=== PATIENT | female | born 1970 | race Caucasian/White ===

== ENCOUNTER 2019-04-10 17:33 | Observation (INO) | payer BC ==
--- NOTE | 2019-04-10 18:15 | ER Document Report ---
HPI - HPI Pain Level: 4 Notes: Patient is a 49-year-old female with a history of GERD who presents complaining of right upper quadrant abdominal pain and right lateral mid rib pain over the past week. No injury. Patient states that she can reproduce the pain by pushing on it as well as taking a deep breath or coughing. She is still able to eat and drink without difficulty. She is urinating normally. Patient states that she is able to ambulate without any shortness of breath or dyspnea on exertion. No history of DVT/PE. Denies any headache, fever, neck pain, URI, sore throat, chest pain, palpitations, syncope, cough, shortness of breath, wheeze, dyspnea, nausea/vomiting/diarrhea, urinary retention, dysuria, hematuria, loss of control of bowel or bladder, numbness/tingling, muscle paralysis/weakness, rash. History of total hysterectomy. - ROS Systems Reviewed and Negative: Yes All other systems reviewed and negative - REPRODUCTIVE Reproductive: DENIES: : Past Medical History - Social History Smoking Status: Never Smoker Family History: Reviewed & Not Pertinent GI Medical History: Reports: Hx Gastroesophageal Reflux Disease Past Surgical History: Reports: Hx Genitourinary Surgery - bladder sling, vaginal mesh, Hx Gynecologic Surgery, Hx Hysterectomy, Hx Orthopedic Surgery - Left foot, Hx Tonsillectomy Vertical Provider Document - CONSTITUTIONAL Agree With Documented VS: Yes Notes: PHYSICAL EXAMINATION: GENERAL: Well-appearing, well-nourished and in no acute distress. HEAD: Atraumatic, normocephalic. EYES: Pupils equal round and reactive to light, extraocular movements intact, sclera anicteric, conjunctiva are normal. ENT: Nares patent and without discharge. oropharynx clear without exudates. No tonsilar hypertrophy or erythema. Moist mucous membranes. NECK: Normal range of motion, supple without lymphadenopathy Chest: + reproducible tenderness to palpation of the rt lateral mid rib area and reproducible with arm extension/abduction/trunk lateral flexion LUNGS: Breath sounds clear to auscultation bilaterally and equal. No wheezes rales or rhonchi. HEART: Regular rate and rhythm without murmurs, rubs, gallops. ABDOMEN: Soft, nondistended abdomen. No guarding, no rebound. No masses appreciated. Normal bowel sounds present. No CVA tenderness bilaterally. + tenderness RUQ. Musculoskeletal: FROM to passive/active. Strength 5+/5. Ken neg. No asymmetry to LE's. Extremities: No cyanosis, clubbing, or edema b/l. Peripheral pulses 2+. Capillary refill less than 3 seconds. NEUROLOGICAL: Normal speech, normal gait. PSYCH: Normal mood, normal affect. SKIN: Warm, Dry, normal turgor, no rashes or lesions noted. - INFECTION CONTROL TRAVEL OUTSIDE OF THE [place] IN LAST 30 DAYS: No Course - Re-evaluation Re-evalutation: 04/10/19 18:[address] Colon. We will perform basic work up at this time. Pt Wells' negative with reproducible tenderness on palpation and ROM. 04/10/19 20:20 Patient is an afebrile, well-hydrated, 49-year-old female who presents with acute cholecystitis. Vitals are acceptable without significant tachycardia, tachypnea, or hypoxia. PE is otherwise unremarkable aside from positive Cardenas. Patient does have leukocytosis at 17,000. CMP and urinalysis unremarkable. I did speak with our general surgeon, Dr. Mortensen, who has accepted patient for admission. Patient is in agreement with this plan. - Vital Signs Vital signs: Temp Pulse Resp BP Pulse Ox 97.8 F 84 16 131/72 H 97 04/10/19 17:41 04/10/19 17:41 04/10/19 17:41 04/10/19 17:41 04/10/19 17:41 - Laboratory Result Diagrams: 04/10/19 18:35 04/10/19 18:35 Discharge - Discharge Clinical Impression: Acute cholecystitis Condition: Stable Disposition: ADMITTED INPATIENT Admitting Provider: Surgicalist - Dr. Mortensen Unit Admitted: Surgical Floor Referrals: LOCALMD,NO [NO LOCAL MD] - Follow up as needed
--- NOTE | 2019-04-10 18:48 | RADIOLOGY REPORT (SQ) ---
EXAM DESCRIPTION: RIBS RIGHT W/PA CHEST COMPLETED DATE/TIME: 04/10/2019 6:27 pm REASON FOR STUDY: pain right lateral mid rib area COMPARISON: None. TECHNIQUE: Frontal view of the chest and additional views of the right ribs acquired. NUMBER OF VIEWS: Three view. LIMITATIONS: None. FINDINGS: FRONTAL CXR: No pneumothorax. No pleural effusion. No atelectasis or infiltrates. RIBS: No displaced rib fractures. No lytic or blastic bony lesions. OTHER: No other significant finding. IMPRESSION: NO PNEUMOTHORAX. NO DISPLACED RIB FRACTURES. COMMENT: SITE OF TRAUMA/COMPLAINT MARKED/STAMP COMPLETED: NO. TECHNICAL DOCUMENTATION: JOB ID: [id number] [employer]- All Rights Reserved Reading location - IP/workstation name: [email or web address]
[2019-04-10 18:50] LABS: ABSOLUTE EOSINOPHILS # (AUTO) 0.2 10^3/uL (0.0-0.6); ABSOLUTE LYMPHOCYTES (AUTO) 6.7 10^3/uL (0.5-4.7); ABSOLUTE MONOCYTES (AUTO) 0.9 10^3/uL (0.1-1.4); ABSOLUTE NEUT (AUTO) 9.6 10^3/uL (1.7-8.2); BASOPHILS % (AUTO) 0.1 % (0-2); HEMATOCRIT 42.1 % (36.0-47.0); HEMOGLOBIN 13.8 g/dL (12.0-15.5); LYMPHOCYTES % (AUTO) 38.6 % (13-45); MEAN CORPUSCULAR HEMOGLOBIN 28.4 pg (27.0-33.4); MEAN CORPUSCULAR HGB CONC 32.8 g/dL (32.0-36.0); MEAN CORPUSCULAR VOLUME 87 fl (80-97); MONOCYTES % (AUTO) 4.9 % (3-13); PLATELET COUNT 359 10^3/uL (150-450); RED BLOOD COUNT 4.86 10^6/uL (3.72-5.28); RED CELL DISTRIBUTION WIDTH 13.8 % (11.5-14.0); SEGMENTED NEUTROPHILS % (AUTO) 55.4 % (42-78); TOTAL CELLS COUNTED % (AUTO) 100 %; WHITE BLOOD COUNT 17.3 10^3/uL (4.0-10.5)
[2019-04-10 19:09] LABS: ALANINE AMINOTRANSFERASE 45 U/L (9-52); ALBUMIN 4.1 g/dL (3.5-5.0); ALKALINE PHOSPHATASE 72 U/L (38-126); ANION GAP 12 (5-19); ASPARTATE AMINO TRANSFERASE 30 U/L (14-36); BILIRUBIN,DIRECT 0.1 mg/dL (0.0-0.4); BILIRUBIN,TOTAL 0.2 mg/dL (0.2-1.3); BLOOD UREA NITROGEN 13 mg/dL (7-20); CALCIUM 9.8 mg/dL (8.4-10.2); CARBON DIOXIDE 23 mmol/L (22-30); CHLORIDE 105 mmol/L (98-107); GLUCOSE 120 mg/dL (75-110); LIPASE 170.8 U/L (23-300); POTASSIUM 3.8 mmol/L (3.6-5.0); SODIUM 140.3 mmol/L (137-145)
[2019-04-10 19:35] LABS: APPEARANCE,URINE SLIGHTLY-CLOUDY; BILIRUBIN,URINE NEGATIVE (NEGATIVE); COLOR,URINE YELLOW; GLUCOSE, URINE NEGATIVE (NEGATIVE); KETONES,URINE NEGATIVE (NEGATIVE); LEUKOCYTE ESTERASE,URINE NEGATIVE (NEGATIVE); NITRITE,URINE NEGATIVE (NEGATIVE); PROTEIN,URINE NEGATIVE (NEGATIVE); URINE SPECIFIC GRAVITY 1.021; UROBILINOGEN,URINE NEGATIVE mg/dL (<2.0)
--- NOTE | 2019-04-10 19:50 | RADIOLOGY REPORT (SQ) ---
EXAM DESCRIPTION: U/S ABDOMEN LIMITED W/O DOP COMPLETED DATE/TIME: 04/10/2019 7:25 pm REASON FOR STUDY: RUQ pain COMPARISON: None. TECHNIQUE: Dynamic and static grayscale images acquired of the abdomen and recorded on PACS. Albertoo lisa selected color Doppler and spectral images recorded. LIMITATIONS: Very limited study. FINDINGS: PANCREAS: Not seen. LIVER: Increased echogenicity. Not well seen. No obvious masses. LIVER VASCULATURE: Not seen. GALLBLADDER: No stones. The gallbladder wall is thickened at 3.8 mm. ULTRASOUND-DETECTED CARDENAS'S SIGN: Positive. INTRAHEPATIC DUCTS AND COMMON DUCT: Ducts not seen. INFERIOR VENA CAVA: Not imaged. AORTA: No aneurysm. The distal aorta was not well seen. RIGHT KIDNEY: Normal size, 10.3 cm. Normal echogenicity. No solid or suspicious masses. No hydroneph rosis. No calcifications. PERITONEAL AND RIGHT PLEURAL SPACE: No ascites or effusions. OTHER: No other significant findings. IMPRESSION: Hepatic steatosis. Thickening of the gallbladder wall and positive sonographic Cardenas s ign. Cannot exclude acalculous cholecystitis. TECHNICAL DOCUMENTATION: JOB ID: [id number]- All Rights Reserved Reading location - IP/workstation name: [email or web address]
[2019-04-10] MEDS ORDERED: NORMAL SALINE 1000 ML 1,000 ML IV ONE (20:20)
[2019-04-10] MEDS: ONDANSETRON HCL INJ/PF 4 MG/2 ML SDV IV PRN (21:00)
[2019-04-10] MEDS: MORPHINE SULFATE 10 MG/ML INJ IV PRN (21:00)
[2019-04-10] MEDS: PIPERACILLIN SODIUM/TAZOBACTAM 3.375 GM in NORMAL SALINE 100 ML IV SCH (21:02)
[2019-04-10] MEDS: DEXTROSE 5%-LACTATED RINGERS 1,000 ML IV PRN (22:32)
[2019-04-11] MEDS: MORPHINE SULFATE 10 MG/ML INJ IV PRN ×3 (02:25→13:38)
[2019-04-11] MEDS: PIPERACILLIN SODIUM/TAZOBACTAM 3.375 GM in NORMAL SALINE 100 ML IV SCH ×4 (02:25→21:29)
[2019-04-11] MEDS: ONDANSETRON HCL INJ/PF 4 MG/2 ML SDV IV PRN ×2 (02:26→06:28)
[2019-04-11 05:53] LABS: ABSOLUTE BASOPHILS # (AUTO) 0.1 10^3/uL (0.0-0.2); ABSOLUTE EOSINOPHILS # (AUTO) 0.3 10^3/uL (0.0-0.6); ABSOLUTE LYMPHOCYTES (AUTO) 5.5 10^3/uL (0.5-4.7); ABSOLUTE MONOCYTES (AUTO) 0.9 10^3/uL (0.1-1.4); ABSOLUTE NEUT (AUTO) 7.4 10^3/uL (1.7-8.2); BASOPHILS % (AUTO) 0.5 % (0-2); EOSINOPHILS % (AUTO) 1.9 % (0-6); HEMATOCRIT 39.4 % (36.0-47.0); HEMOGLOBIN 12.9 g/dL (12.0-15.5); LYMPHOCYTES % (AUTO) 39.1 % (13-45); MEAN CORPUSCULAR HEMOGLOBIN 28.5 pg (27.0-33.4); MEAN CORPUSCULAR HGB CONC 32.8 g/dL (32.0-36.0); MEAN CORPUSCULAR VOLUME 87 fl (80-97); MONOCYTES % (AUTO) 6.1 % (3-13); PLATELET COUNT 325 10^3/uL (150-450); RED BLOOD COUNT 4.53 10^6/uL (3.72-5.28); RED CELL DISTRIBUTION WIDTH 13.5 % (11.5-14.0); SEGMENTED NEUTROPHILS % (AUTO) 52.4 % (42-78); TOTAL CELLS COUNTED % (AUTO) 100 %
--- NOTE | 2019-04-11 06:02 | PDOC H&P ---
History of Present Illness Admission Date/PCP: 04/10/19 20:29 Patient complains of: right upper quadrant and flank pain History of Present Illness: MOISÉS SLADE is a 49 year old female with a long history of "gallbladder problems". The patient began having right upper quadrant pain yesterday afternoon that radiated around into her right flank. The pain became severe. It is unrelenting. The pain is sharp and stabbing. She rates it 8 out of 10. At this time she presented to the emergency department where evaluation was was undertaken. Patient reports nausea without vomiting. Nothing makes her pain better. Palpation and movement make her pain worse. She denies headache, chest pain, fevers, chills, shortness of breath, melena, hematochezia, hematemesis, orthostasis, blurry vision. Past Medical History GI Medical History: Reports: Gastroesophageal Reflux Disease Past Surgical History Past Surgical History: Reports: Hysterectomy, Orthopedic Surgery - Left foot, Tonsillectomy, Other - "Bladder mesh" Social History Information Source: Patient Smoking Status: Never Smoker Hx Recreational Drug Use: No Drugs: None Hx Prescription Drug Abuse: No Family History Family History: Reviewed & Not Pertinent Parental Family History Reviewed: Yes Children Family History Reviewed: Yes Sibling(s) Family History Reviewed.: Yes Medication/Allergy Home Medications: Esomeprazole Magnesium [Nexium 24Hr] 40 mg PO DAILY 04/10/19 Estradiol [Estrace] 0.5 mg PO DAILY 04/10/19 L.acidoph,Paracasei, B.lactis [Probiotic] 1 each PO DAILY 04/10/19 Allergies/Adverse Reactions: aspirin [Aspirin] Adverse Reaction (Verified 04/10/19 17:37) Review of Systems Constitutional: ABSENT: anorexia, chills, fatigue, fever(s), headache(s), night sweats, weakness Eyes: ABSENT: visual disturbances Ears: ABSENT: hearing changes Nose, Mouth, and Throat: ABSENT: sore throat Cardiovascular: ABSENT: chest pain Respiratory: ABSENT: cough, dyspnea Gastrointestinal: PRESENT: abdominal pain, heartburn, nausea. ABSENT: bloating, hematemesis, hematochezia, melena, vomiting Genitourinary: ABSENT: difficulty urinating Musculoskeletal: PRESENT: back pain - Right\\flank Integumentary: ABSENT: pruritus, rash Neurological: ABSENT: abnormal speech, confusion, convulsions, dizziness Psychiatric: ABSENT: anxiety, depression Endocrine: ABSENT: cold intolerance, heat intolerance Hematologic/Lymphatic: ABSENT: easy bleeding, easy bruising Physical Exam Vital Signs: Temp Pulse Resp BP Pulse Ox 98.2 F 67 17 126/59 H 96 04/11/19 02:41 04/11/19 02:41 04/11/19 02:41 04/11/19 02:41 04/11/19 02:41 Intake & Output 04/09/19 04/10/19 04/11/19 06:59 06:59 06:59 Intake Total 1200 Balance 1200 Weight 89.9 kg General appearance: PRESENT: obese Head exam: PRESENT: atraumatic, normocephalic Eye exam: PRESENT: EOMI, PERRLA. ABSENT: scleral icterus Mouth exam: PRESENT: moist, neck supple Teeth exam: ABSENT: poor dentation Neck exam: ABSENT: meningismus, tenderness, thyromegaly, tracheal deviation Respiratory exam: PRESENT: clear to auscultation [place], unlabored. ABSENT: chest wall tenderness, tachypnea, wheezes Cardiovascular exam: PRESENT: RRR Pulses: PRESENT: normal radial pulses Vascular exam: PRESENT: normal capillary refill. ABSENT: pallor GI/Abdominal exam: PRESENT: guarding - Right upper quadrant, Cardenas's sign, soft, tenderness - Right upper quadrant/flank. ABSENT: rigid Rectal exam: PRESENT: deferred Extremities exam: ABSENT: clubbing Musculoskeletal exam: ABSENT: deformity Neurological exam: PRESENT: alert, awake, oriented to person, oriented to place, oriented to time, oriented to situation Psychiatric exam: ABSENT: agitated, anxious, depressed Focused psych exam: ABSENT: delusional Skin exam: ABSENT: cyanosis, erythema, jaundice Results Laboratory Results: 04/10/19 04/10/19 04/10/19 18:35 18:35 19:20 WBC 17.3 H RBC 4.86 Hgb 13.8 Hct 42.1 MCV 87 MCH 28.4 MCHC 32.8 RDW 13.8 Plt Count 359 Seg Neutrophils % 55.4 Lymphocytes % 38.6 Monocytes % 4.9 Eosinophils % 1.0 Basophils % 0.1 Absolute Neutrophils 9.6 H Absolute Lymphocytes 6.7 H Absolute Monocytes 0.9 Absolute Eosinophils 0.2 Absolute Basophils 0.0 Sodium 140.3 Potassium 3.8 Chloride 105 Carbon Dioxide 23 Anion Gap 12 BUN 13 Creatinine 0.66 Est GFR ( Amer) > 60 Est GFR (Non-Af Amer) > 60 Glucose 120 H Calcium 9.8 Total Bilirubin 0.2 AST 30 ALT 45 Alkaline Phosphatase 72 Total Protein 7.0 Albumin 4.1 Lipase 170.8 Urine Color YELLOW Urine Appearance SLIGHTLY-CLOUDY Urine pH 5.0 Ur Specific [place] 1.021 Urine Protein NEGATIVE Urine Glucose (UA) NEGATIVE Urine Ketones NEGATIVE Urine Blood NEGATIVE Urine Nitrite NEGATIVE Ur Leukocyte Esterase NEGATIVE Urine WBC (Auto) 2 Urine RBC (Auto) 0 Impressions: Abdomen Ultrasound 04/10/19 18:09 IMPRESSION: Hepatic steatosis. Thickening of the gallbladder wall and positive sonographic Cardenas sign. Cannot exclude acalculous cholecystitis. Ribs w/Chest X-Ray 04/10/19 18:09 IMPRESSION: NO PNEUMOTHORAX. NO DISPLACED RIB FRACTURES. Assessment & Plan - Diagnosis (1) Acute cholecystitis Is this a current diagnosis for this admission?: Yes - Plan Summary Plan Summary: This is a 49-year-old female with acute cholecystitis. She has an elevated white blood cell count as well as thickening of her gallbladder wall on ultrasound. I have admitted the patient and started her on Zosyn. I have recommended cholecystectomy today. The patient has agreed to this. Risks/benefits discussed, informed consent obtained, and all questions answered.
[2019-04-11 06:20] LABS: ALANINE AMINOTRANSFERASE 37 U/L (9-52); ALBUMIN 3.4 g/dL (3.5-5.0); ALKALINE PHOSPHATASE 58 U/L (38-126); ANION GAP 9 (5-19); ASPARTATE AMINO TRANSFERASE 28 U/L (14-36); BILIRUBIN,DIRECT 0.2 mg/dL (0.0-0.4); BILIRUBIN,TOTAL 0.2 mg/dL (0.2-1.3); BLOOD UREA NITROGEN 14 mg/dL (7-20); CARBON DIOXIDE 23 mmol/L (22-30); CHLORIDE 109 mmol/L (98-107); GLUCOSE 94 mg/dL (75-110); POTASSIUM 4.4 mmol/L (3.6-5.0); SODIUM 141.4 mmol/L (137-145); TOTAL PROTEIN 5.9 g/dL (6.3-8.2)
[2019-04-11] MEDS: DEXTROSE 5%-LACTATED RINGERS 1,000 ML IV PRN (06:29)
--- NOTE | 2019-04-11 07:29 | PDOC PROGRESS REPORT ---
Subjective Progress Note for:: 04/11/19 Subjective:: RUQ pain Reason For Visit: ACUTE CHOLECYSTITIS Physical Exam Vital Signs: Temp Pulse Resp BP Pulse Ox 98.2 F 67 17 126/59 H 96 04/11/19 02:41 04/11/19 02:41 04/11/19 02:41 04/11/19 02:41 04/11/19 02:41 Intake & Output 04/10/19 04/11/19 04/12/19 06:59 06:59 06:59 Intake Total 1200 Balance 1200 Weight 89.9 kg General appearance: PRESENT: mild distress, obese Respiratory exam: PRESENT: clear to auscultation [place] Cardiovascular exam: PRESENT: RRR GI/Abdominal exam: PRESENT: Cardenas's sign - positive, soft, tenderness - RUQ Results Laboratory Results: 04/11/19 05:15 04/11/19 05:15 04/10/19 04/10/19 04/10/19 18:35 18:35 19:20 WBC 17.3 H RBC 4.86 Hgb 13.8 Hct 42.1 MCV 87 MCH 28.4 MCHC 32.8 RDW 13.8 Plt Count 359 Seg Neutrophils % 55.4 Lymphocytes % 38.6 Monocytes % 4.9 Eosinophils % 1.0 Basophils % 0.1 Absolute Neutrophils 9.6 H Absolute Lymphocytes 6.7 H Absolute Monocytes 0.9 Absolute Eosinophils 0.2 Absolute Basophils 0.0 Sodium 140.3 Potassium 3.8 Chloride 105 Carbon Dioxide 23 Anion Gap 12 BUN 13 Creatinine 0.66 Est GFR ( Amer) > 60 Est GFR (Non-Af Amer) > 60 Glucose 120 H Calcium 9.8 Total Bilirubin 0.2 AST 30 ALT 45 Alkaline Phosphatase 72 Total Protein 7.0 Albumin 4.1 Lipase 170.8 Urine Color YELLOW Urine Appearance SLIGHTLY-CLOUDY Urine pH 5.0 Ur Specific [place] 1.021 Urine Protein NEGATIVE Urine Glucose (UA) NEGATIVE Urine Ketones NEGATIVE Urine Blood NEGATIVE Urine Nitrite NEGATIVE Ur Leukocyte Esterase NEGATIVE Urine WBC (Auto) 2 Urine RBC (Auto) 0 04/11/19 04/11/19 05:15 05:15 WBC 14.0 H RBC 4.53 Hgb 12.9 Hct 39.4 MCV 87 MCH 28.5 MCHC 32.8 RDW 13.5 Plt Count 325 Seg Neutrophils % 52.4 Lymphocytes % 39.1 Monocytes % 6.1 Eosinophils % 1.9 Basophils % 0.5 Absolute Neutrophils 7.4 Absolute Lymphocytes 5.5 H Absolute Monocytes 0.9 Absolute Eosinophils 0.3 Absolute Basophils 0.1 Sodium 141.4 Potassium 4.4 Chloride 109 H Carbon Dioxide 23 Anion Gap 9 BUN 14 Creatinine 0.70 Est GFR ( Amer) > 60 Est GFR (Non-Af Amer) > 60 Glucose 94 Calcium 9.0 Total Bilirubin 0.2 AST 28 ALT 37 Alkaline Phosphatase 58 Total Protein 5.9 L Albumin 3.4 L Lipase Urine Color Urine Appearance Urine pH Ur Specific [place] Urine Protein Urine Glucose (UA) Urine Ketones Urine Blood Urine Nitrite Ur Leukocyte Esterase Urine WBC (Auto) Urine RBC (Auto) Impressions: Abdomen Ultrasound 04/10/19 18:09 IMPRESSION: Hepatic steatosis. Thickening of the gallbladder wall and positive sonographic Cardenas sign. Cannot exclude acalculous cholecystitis. Ribs w/Chest X-Ray 04/10/19 18:09 IMPRESSION: NO PNEUMOTHORAX. NO DISPLACED RIB FRACTURES. Assessment & Plan - Diagnosis (1) Acute cholecystitis Is this a current diagnosis for this admission?: Yes - Plan Summary Plan Summary: A/ Acute, acalculus cholecystitis as per US RUQ pain Normal LFT's Leukocytosis (14K today) Patient on Zosyn P/ Laparoscopic cholecystectomy, possible open, possible cholangiogram today. Procedure, risks, benefits., complications including bleeding from the liver and or injury of the bile ducts which might require transfer to a tertiary medical center for open repair have been discussed with the patient, she understands all the above, her questions were answered, and she decides to proceed.
[2019-04-11] MEDS ORDERED: DEXAMETHASONE SOD PHOSPHATE INJ 4 MG/1 ML VIAL ONE (08:00)
[2019-04-11] MEDS ORDERED: MIDAZOLAM 2 MG/2 ML INJ ONE (08:00)
[2019-04-11] MEDS ORDERED: FENTANYL CITRATE INJ/PF 100 MCG/2 ML AMPUL ONE (08:00)
[2019-04-11] MEDS ORDERED: MORPHINE SULFATE 10 MG/ML INJ ONE (08:01)
[2019-04-11] MEDS ORDERED: ONDANSETRON HCL INJ/PF 4 MG/2 ML SDV ONE (08:01)
[2019-04-11] MEDS ORDERED: PROPOFOL INJ 200 MG/20 ML VIAL IV ONE (08:01)
[2019-04-11] MEDS ORDERED: BUPIVACAINE HCL 0.5%-EPI 1:200000 INJ/PF 30 ML VIAL ONE (08:08)
[2019-04-11] MEDS ORDERED: MEPERIDINE HCL/PF INJ 25 MG/1 ML DISP.SYRIN IV PRN (09:04)
[2019-04-11] MEDS ORDERED: MORPHINE SULFATE 10 MG/ML INJ IV PRN ×2 (09:04→10:27)
[2019-04-11] MEDS ORDERED: PROMETHAZINE HCL INJ 25 MG/1 ML VIAL IV PRN ×2 (09:04)
[2019-04-11] MEDS ORDERED: FENTANYL CITRATE INJ/PF 100 MCG/2 ML AMPUL IV PRN ×3 (09:04)
[2019-04-11] MEDS ORDERED: DIPHENHYDRAMINE HCL 50 MG/ML VIAL IV PRN (09:04)
--- NOTE | 2019-04-11 09:52 | Operative Report ---
Nonrecallable Operative Report DATE OF SURGERY: 04/11/19 PREOPERATIVE DIAGNOSIS: Acalculous acute cholecystitis POSTOPERATIVE DIAGNOSIS: same OPERATION: laparoscopic cholecystectomy SURGEON: ANDREINA KWAN ANESTHESIA: GA - plus 20 mL 0.5% Marcaine with epinephrine TISSUE REMOVED OR ALTERED: gallblader COMPLICATIONS: none ESTIMATED BLOOD LOSS: < 5 mL INTRAOPERATIVE FINDINGS: slighly inflamed gallbladder PROCEDURE: see dictation
[2019-04-11] MEDS: FENTANYL CITRATE INJ/PF 100 MCG/2 ML AMPUL ONE ×2 (10:19→10:24)
[2019-04-11] MEDS ORDERED: ONDANSETRON HCL INJ/PF 4 MG/2 ML SDV IV PRN (10:27)
[2019-04-11] MEDS: NORMAL SALINE 1000 ML 1,000 ML IV PRN (13:37)
[2019-04-11] MEDS: ACETAMINOPHEN 1,000 MG/100 ML RTUPB IV SCH ×2 (13:38→18:27)
[2019-04-11] MEDS ORDERED: ROCURONIUM BROMIDE INJ 50 MG/5 ML VIAL IV ONE (13:52)
[2019-04-11] MEDS ORDERED: SUCCINYLCHOLINE CHLORIDE INJ 200 MG/10 ML VIAL ONE (13:52)
[2019-04-11] MEDS ORDERED: NEOSTIGMINE METHYLSULFATE 10 MG/10 ML VIAL ONE (13:52)
[2019-04-11] MEDS ORDERED: GLYCOPYRROLATE 1 MG/5 ML SYRINGE ONE (13:52)
[2019-04-11] MEDS ORDERED: FAMOTIDINE INJ/PF 20 MG/2 ML SDV IV SCH (22:00)
[2019-04-12] MEDS: ACETAMINOPHEN 1,000 MG/100 ML RTUPB IV SCH ×2 (01:37→06:34)
[2019-04-12] MEDS: NORMAL SALINE 1000 ML 1,000 ML IV PRN (01:37)
[2019-04-12 06:28] LABS: HEMATOCRIT 36.7 % (36.0-47.0); HEMOGLOBIN 12.1 g/dL (12.0-15.5); MEAN CORPUSCULAR HEMOGLOBIN 28.3 pg (27.0-33.4); MEAN CORPUSCULAR HGB CONC 32.9 g/dL (32.0-36.0); MEAN CORPUSCULAR VOLUME 86 fl (80-97); PLATELET COUNT 304 10^3/uL (150-450); RED BLOOD COUNT 4.26 10^6/uL (3.72-5.28); RED CELL DISTRIBUTION WIDTH 13.4 % (11.5-14.0); WHITE BLOOD COUNT 16.1 10^3/uL (4.0-10.5)
[2019-04-12] MEDS: PIPERACILLIN SODIUM/TAZOBACTAM 3.375 GM in NORMAL SALINE 100 ML IV SCH ×3 (06:32→14:06)
[2019-04-12 06:40] LABS: ALANINE AMINOTRANSFERASE 69 U/L (9-52); ALBUMIN 3.5 g/dL (3.5-5.0); ALKALINE PHOSPHATASE 66 U/L (38-126); ANION GAP 10 (5-19); ASPARTATE AMINO TRANSFERASE 59 U/L (14-36); BILIRUBIN,DIRECT 0.2 mg/dL (0.0-0.4); BILIRUBIN,TOTAL 0.3 mg/dL (0.2-1.3); BLOOD UREA NITROGEN 10 mg/dL (7-20); CALCIUM 9.1 mg/dL (8.4-10.2); CARBON DIOXIDE 25 mmol/L (22-30); CHLORIDE 105 mmol/L (98-107); GLUCOSE 107 mg/dL (75-110); POTASSIUM 4.4 mmol/L (3.6-5.0); SODIUM 139.5 mmol/L (137-145)
--- NOTE | 2019-04-12 09:38 | PDOC PROGRESS REPORT ---
Subjective Progress Note for:: 04/12/19 Subjective:: no c/o, tolerating po well, no n/v Reason For Visit: ACUTE CHOLECYSTITIS Physical Exam Vital Signs: Temp Pulse Resp BP Pulse Ox 98.1 F 81 17 116/59 L 93 04/11/19 19:48 04/11/19 19:48 04/11/19 19:48 04/11/19 19:48 04/11/19 19:48 Intake & Output 04/11/19 04/12/19 04/13/19 06:59 06:59 06:59 Intake Total 1200 3842 100 Output Total 5 Balance 1200 3837 100 Weight 89.9 kg 93 kg General appearance: PRESENT: no acute distress Respiratory exam: PRESENT: clear to auscultation [place] Cardiovascular exam: PRESENT: RRR GI/Abdominal exam: PRESENT: normal bowel sounds, soft, other - all incisions are C/D/I Results Laboratory Results: 04/12/19 06:02 04/12/19 06:02 04/12/19 04/12/19 06:02 06:02 WBC 16.1 H RBC 4.26 Hgb 12.1 Hct 36.7 MCV 86 MCH 28.3 MCHC 32.9 RDW 13.4 Plt Count 304 Sodium 139.5 Potassium 4.4 Chloride 105 Carbon Dioxide 25 Anion Gap 10 BUN 10 Creatinine 0.57 Est GFR ( Amer) > 60 Est GFR (Non-Af Amer) > 60 Glucose 107 Calcium 9.1 Total Bilirubin 0.3 AST 59 H ALT 69 H Alkaline Phosphatase 66 Total Protein 6.0 L Albumin 3.5 Impressions: Abdomen Ultrasound 04/10/19 18:09 IMPRESSION: Hepatic steatosis. Thickening of the gallbladder wall and positive sonographic Cardenas sign. Cannot exclude acalculous cholecystitis. Ribs w/Chest X-Ray 04/10/19 18:09 IMPRESSION: NO PNEUMOTHORAX. NO DISPLACED RIB FRACTURES. Assessment & Plan - Diagnosis (1) Acute cholecystitis Is this a current diagnosis for this admission?: Yes - Plan Summary Plan Summary: A/ POD#1 after lap [place] for chronic cholecystitis, no evidence of acute cholecystitis identified during surgery VSS, AF patient feeling well WBC still elevated = 14K; however, patient reports to have had always an elevated WBC for years since she can remember including after hysterectomy Abdomen soft P/ patient can be discharged to home pending hematology evaluation of her elevated WBC Consult hematology today Home today after hematology consultation resume regular diet and activities as preop return to work on Monday no wound care needed shower only x 2 weeks from day of surgery, patient can bathe afterward Tylenol as needed for pain Follow up in the Surgery office with NICOLÁS Hernandez
[2019-04-12] MEDS ORDERED: KETOROLAC TROMETHAMINE 10 MG TABLET PO PRN (09:44)
--- NOTE | 2019-04-12 12:25 | DISCHARGE SUMMARY E ---
Discharge Summary NAME: MOISÉS SLADE : 1970 AGE: 49Y ADMITTED: 04/10/2019 DISCHARGED: 04/12/2019 FINAL DIAGNOSIS: Acalculous chronic cholecystitis. COMPLICATIONS: None. PROCEDURE: Laparoscopic cholecystectomy on 04/11/2019. HOSPITAL COURSE: A morbidly obese 49-year-old female who presented to the hospital complaining of right upper quadrant pain. She had a white blood cell count of 17,000 and ultrasound of the gallbladder was done revealing a possible acute cholecystitis, acalculous type. The patient underwent surgery on 04/11/2019 with uneventful laparoscopic cholecystectomy. During the surgery the gallbladder was found to be normal without evidence of acute cholecystitis. No stones were identified. The postoperative course was unremarkable. On the day after the surgery, 04/12/2019, the patient had stable vital signs, no fever, and her physical exam was unremarkable with abdomen soft, positive bowel sounds. The incision was clean, dry, and intact. Her blood work revealed a slightly elevated AST/ALT with normal bilirubin and alkaline phosphatase. However, her white blood cell count was still elevated at 16.1, which still similar to the white blood cell count on admission, 17.3. At this point the patient gave a history of chronically elevated white blood cell count for several years. The decision was made to discharge the patient to home following evaluation as inpatient by Hematology/Oncology service, Dr. Kaur. DISCHARGE ORDERS: 1. The patient will discharge to home on 04/12/2019 following evaluation from the operations management trainee. 2. She was given follow up appointment to the surgery clinic in 2 weeks with NICOLÁS Clemente. 3. She was instructed to shower only for 2 weeks, afterward she can bathe. 4. No wound care needed. 5. Tylenol as needed for pain. 6. Resume activities and regular diet. 7. Return to work next week on Monday without limitations. DICTATING PHYSICIAN: ANDREINA KWAN M.D. [id number] PHY#: [id number] ID: [id number] JOB#: [id number] ACCT: [id number] cc:SARA CARLIN M.D. ANDREINA KWAN M.D. >
--- NOTE | 2019-04-12 17:49 | PDOC CONSULTATION ---
Consultation Consult Date: 04/12/19 Provider Consulted: SUNIL GASCA Consult reason:: Hematology/Oncology consultation was requested for patient with elevated WBC count. History of Present Illness Admission Date/PCP: 04/10/19 20:29 History of Present Illness: MOISÉS SLADE is a 49 year old female who is followed by Dr. Freedman. Patient states that she developed sharp, constant pain in her right side, just under her axilla last week. She saw her PCP and was diagnosed with pulled muscle. She was given toradol and muscle relaxers, but pain progressed. She presented to the ED and plain films were done which were negative. Her US showed gall bladder disease, so this was removed yesterday. Pain was gone after surgery. However, this morning, pain returned in her right side, same as b efore. Worse with deep breaths and certain movements. Has not been relieved by the muscle relaxers. She also states that Dr. Freedman saw her increased WBC count in January 2017 and has been following this, but it has remained stable. It was thought that this was reactive due to abnormal cortisol and other hormone levels. She has been on both transdermal and oral estrogen over the past year. Her last mammogram was >1 year ago. Past Medical History GI Medical History: Reports: Gastroesophageal Reflux Disease Past Surgical History Past Surgical History: Reports: Hysterectomy, Orthopedic Surgery - Left foot, Tonsillectomy, Other - "Bladder mesh" Social History Information Source: Patient Lives with: Family Smoking Status: Never Smoker Frequency of Alcohol Use: None Hx Recreational Drug Use: No Drugs: None Hx Prescription Drug Abuse: No Past Social History Note: 1 child. - Advance Directive Resuscitation Status: Full Code Family History Family History: 3 paternal uncles with prostate cancer. Parental Family History Reviewed: Yes - Father of lung cancer. Mother living with DM. PGF of prostateCa Children Family History Reviewed: Yes Sibling(s) Family History Reviewed.: Yes Medication/Allergy Home Medications: Esomeprazole Magnesium [Nexium 24Hr] 40 mg PO DAILY 04/10/19 Estradiol [Estrace] 0.5 mg PO DAILY 04/10/19 L.acidoph,Paracasei, B.lactis [Probiotic] 1 each PO DAILY 04/10/19 Allergies/Adverse Reactions: aspirin [Aspirin] Adverse Reaction (Verified 04/10/19 17:37) Review of Systems Constitutional: PRESENT: weight gain. ABSENT: fever(s), headache(s) Eyes: ABSENT: visual disturbances Ears: ABSENT: hearing changes Nose, Mouth, and Throat: ABSENT: sore throat Cardiovascular: PRESENT: chest pain Gastrointestinal: ABSENT: abdominal pain, constipation Genitourinary: PRESENT: other - frequency Integumentary: ABSENT: rash Neurological: ABSENT: dizziness Hematologic/Lymphatic: ABSENT: easy bruising Physical Exam Vital Signs: Temp Pulse Resp BP Pulse Ox 97.6 F 75 12 122/47 L 97 04/12/19 17:00 04/12/19 17:00 04/12/19 17:00 04/12/19 17:00 04/12/19 17:00 Intake & Output 04/11/19 04/12/19 04/13/19 06:59 06:59 06:59 Intake Total 1200 3842 200 Output Total 5 Balance 1200 3837 200 Weight 89.9 kg 93 kg General appearance: PRESENT: no acute distress, obese, well-developed Exam: 46 year old female. Head exam: PRESENT: atraumatic, normocephalic Eye exam: PRESENT: EOMI, PERRLA Mouth exam: PRESENT: moist, tongue midline Neck exam: ABSENT: lymphadenopathy, tenderness Respiratory exam: PRESENT: clear to auscultation [place], unlabored Cardiovascular exam: PRESENT: RRR GI/Abdominal exam: PRESENT: soft, tenderness Extremities exam: ABSENT: pedal edema Musculoskeletal exam: PRESENT: normal inspection Neurological exam: PRESENT: alert, awake, oriented to person, oriented to place, oriented to time, oriented to situation Psychiatric exam: PRESENT: appropriate affect Focused psych exam: ABSENT: restlessness Skin exam: PRESENT: normal color Additional comments: Right breast and axilla without palpable lumps or lymphadenopathy. Tenderness to palpation at right ribcage. Results Laboratory Results: 04/12/19 06:02 04/12/19 06:02 04/12/19 04/12/19 06:02 06:02 WBC 16.1 H RBC 4.26 Hgb 12.1 Hct 36.7 MCV 86 MCH 28.3 MCHC 32.9 RDW 13.4 Plt Count 304 Sodium 139.5 Potassium 4.4 Chloride 105 Carbon Dioxide 25 Anion Gap 10 BUN 10 Creatinine 0.57 Est GFR ( Amer) > 60 Est GFR (Non-Af Amer) > 60 Glucose 107 Calcium 9.1 Total Bilirubin 0.3 AST 59 H ALT 69 H Alkaline Phosphatase 66 Total Protein 6.0 L Albumin 3.5 Impressions: Abdomen Ultrasound 04/10/19 18:09 IMPRESSION: Hepatic steatosis. Thickening of the gallbladder wall and positive sonographic Cardenas sign. Cannot exclude acalculous cholecystitis. Ribs w/Chest X-Ray 04/10/19 18:09 IMPRESSION: NO PNEUMOTHORAX. NO DISPLACED RIB FRACTURES. Assessment & Plan - Diagnosis (1) Acute cholecystitis Is this a current diagnosis for this admission?: Yes Plan: s/p surgery yesterday. (2) Lymphocytosis Is this a current diagnosis for this admission?: Yes Plan: This is chronic over the last 2 years. I am happy to check peripheral blood flow cytometry as an out patient in a few weeks, but I do not believe this is a good time to check this. I will be happy to see her again in about 2 weeks and repeat CBC at that time. - Plan Summary Plan Summary: I discussed patient's care with Dr. Rouse. Although her symptoms are consistent with possible PE, she is not hypoxic and has just gotten through surgery without pulmonary difficulties. This could also be pulled muscle due to the weight of her breast.
--- NOTE | 2019-04-12 18:18 | Progress Note ---
Provider Note Provider Note: Events noted. Patient seen by Hematology-Oncology Physician who will follow her as outpatient to work up patient's chronic leukocytosis. 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 I counseled the patient about the condition and the need to undergo bilateral breast reduction to treat this condition which is causing her severe and chronic right more than left shoulder pain. Patient to be discharged to home tonight.
[2019-04-12 18:59] VITALS: BP 126/59
--- NOTE | 2019-04-13 10:02 | OPERATIVE REPORT E ---
Operative Report NAME: MOISÉS SLADE : 1970 AGE: 49Y DATE OF SURGERY: 04/11/2019 ROOM: 435 PREOPERATIVE DIAGNOSIS: Acalculous acute cholecystitis. POSTOPERATIVE DIAGNOSIS: Acalculous acute cholecystitis. PROCEDURE: Laparoscopic cholecystectomy. SURGEON: ANDREINA KWAN M.D. MAILING SPECIALIST: None. BLEEDING: Less than 5 mL. COMPLICATIONS: None. ANESTHESIA: General plus 20 mL of 0.5% Marcaine with epinephrine. FLUIDS: 700. URINE OUTPUT: Not monitored. DRAINS: None. INDICATIONS AND FINDINGS: A 49-year-old healthy female a history of right upper quadrant pain for about 5 days and patient presented to the hospital. The patient had a white blood cell count of 17,000, which reduced to 14,000 today on the day of surgery. Liver profile was within normal limits. Ultrasound of her belly was done and revealed a thickened gallbladder wall with no stones acalculous acute cholecystitis. So, decision was made to take the patient for surgery today for laparoscopic cholecystectomy, possible open, possible cholangiogram. Procedure, its benefits, complications explained to the patient. She understands all the above and decided to proceed. DESCRIPTION OF PROCEDURE: The procedure was done in the operating room. The patient was placed in supine position. General anesthesia was induced by endotracheal intubation. Abdomen was shaved, prepped and draped in the usual fashion. Incision was made just above the umbilicus. The skin was tented with towel clips. A 10 mm port with an adapter and scope was inserted into the abdominal cavity into the peritoneum. CO2 pneumoperitoneum was then established. Under direct visualization a 12 mm and two 5 mm ports were placed in the epigastrium in the right upper quadrant. The patient was placed in a reverse Trendelenburg position with the right side elevated. The gallbladder was grasped on the fundus flexed then grasped at the level of the neck and pulled anterior toward the patient's right. The critical view of safety was obtained by gently dividing the peritoneal attachments to the gallbladder body to the liver medially and laterally. The dissection was then continued anterior to the neck and the cystic duct, which was gently skeletonized. After the critical view of safety was obtained, cystic artery and cystic duct individually. They were then individually doubly clipped proximally and distally, divided dissected from the liver bed with hook cautery and started from the epigastric port opening. The was then reestablished. The liver bed was examined. bleeders were cauterized. A small amount of bile spillage was noted. This was irrigated with about 1 L of warm normal saline, which was fully aspirated until clear. The fascial defect was closed with [id number] 0 Vicryl suture placed with a fascial closure device and the suture was left untied. Following this the liver bed was again examined. No acute bleeding was noted. All ports were removed. CO2 pneumoperitoneum was released. The fascial defect of the epigastrium was closed with the previously placed 0 Vicryl suture, which was tied. Also, the incision was closed a 4-0 Monocryl running subcuticular suture . The patient tolerated the procedure well, extubated, and transferred to recovery room in satisfactory condition. DICTATING PHYSICIAN: ANDREINA KWAN M.D. [id number] PHY#: [id number] ID: [id number] JOB#: [id number] ACCT: [id number] cc:ANDREINA KWAN M.D. >
== END 2019-04-12 19:23 | disposition home or self-care (01) ==
LOC: ER 17:33 → INTOOBSV 20:29 → EH 20:29 → 4S 04-11 01:44
PROVIDERS: ATTEND Surgery
PROC: 0FT44ZZ Resection of Gallbladder, Percutaneous Endoscopic Approach (ICD-10-PCS; principal; 2019-04-11 08:30)
DX: K81.1 Chronic cholecystitis (principal); E66.01 Morbid (severe) obesity due to excess calories; K21.9 Gastro-esophageal reflux disease without esophagitis; D72.820 Lymphocytosis (symptomatic); N64.4 Mastodynia; Z88.6 Allergy status to analgesic agent; Z79.890 Hormone replacement therapy; Z90.79 Acquired absence of other genital organ(s); Z68.35 Body mass index [BMI] 35.0-35.9, adult
CPT/HCPCS: 47562; 99285; 36415 ×3; 87086; 83690; 85025 ×2; 85027; 80053 ×3; 81001; 88304 ×2; 71101; 76705; 00790; G0378 ×2; J2250; J3490 ×4; J1100; J3010; J2270 ×2; J2710; J0330; J2405 ×2; J7121 ×2; J7050 ×3; J7030 ×3; J2704; S0028; J2543 ×3; J0131 ×2

== ENCOUNTER 2019-04-29 10:06 | Emergency (ER) | payer OTHER, BC ==
[2019-04-29] MEDS ORDERED: DIPH/PERTUSS(ACELL)/TETANUS VAC/PF 0.5 ML SYR (>=10YO) IM ONE (10:53)
[2019-04-29] MEDS ORDERED: HYDROCODONE/ACETAMINOPHEN 5-325 MG TABLET PO ONE (10:53)
--- NOTE | 2019-04-29 10:56 | ER Document Report ---
HPI - HPI Patient complains to provider of: fall Time Seen by Provider: 04/29/19 10:52 Onset: This afternoon Onset/Duration: Sudden Quality of pain: Achy Pain Level: 3 Context: Patient was at work and tripped over uneven pavement falling on outstretched hand. Patient complains of right wrist pain, left ankle pain and right side of headache. Patient denies any loss of consciousness nausea or vomiting. Associated Symptoms: Headache, Other - Left ankle, right wrist pain Exacerbated by: Movement Relieved by: Denies Similar symptoms previously: No Recently seen / treated by doctor: No - ROS ROS below otherwise negative: Yes Systems Reviewed and Negative: Yes All other systems reviewed and negative - NEURO Neurology: REPORTS: Headache. DENIES: Weakness, Vision blurred, Dizzinesss / Vertigo - CARDIOVASCULAR Cardiovascular: DENIES: Chest pain - RESPIRATORY Respiratory: DENIES: Trouble Breathing, Coughing - GASTROINTESTINAL Gastrointestinal: DENIES: Nausea, Patient vomiting - REPRODUCTIVE Reproductive: DENIES: : - MUSCULOSKELETAL Musculoskeletal: REPORTS: Extremity pain - Left ankle, right wrist. 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 Lives with: Family Family History: Reviewed & Not Pertinent Renal/ Medical History: Denies: Hx Peritoneal Dialysis GI Medical History: Reports: Hx Gastroesophageal Reflux Disease, Hx Ulcer Past Surgical History: Reports: Hx Genitourinary Surgery - bladder sling, vaginal mesh, Hx Gynecologic Surgery, Hx Hysterectomy, Hx Orthopedic Surgery - Left foot, Hx Tonsillectomy, Other - "Bladder mesh" - Immunizations Hx Diphtheria, Pertussis, Tetanus Vaccination: Yes Vertical Provider Document - CONSTITUTIONAL Agree With Documented VS: Yes Exam Limitations: No Limitations General Appearance: WD/WN, No Apparent Distress - INFECTION CONTROL TRAVEL OUTSIDE OF THE [place] IN LAST 30 DAYS: No - HEENT HEENT: Normal ENT Exam, Normocephalic, PERRLA. negative: Pharyngeal Exudate, Pharyngeal Tenderness, Tympanic Membrane Red, Tympanic Membrane Bulging Notes: Patient with contusion to right upper forehead along hairline, no raccoon or ochoa signs, no hemotympanum - NECK Neck: Normal Inspection, Supple, Other - No posterior cervical midline tenderness step-off or deformity. negative: Lymphadenopathy-Left, Lymphadenopathy-Right - RESPIRATORY Respiratory: Breath Sounds Normal, No Respiratory Distress - CARDIOVASCULAR Cardiovascular: Regular Rate, Regular Rhythm - BACK Back: Normal Inspection Notes: No posterior midline tenderness step-off or deformity - MUSCULOSKELETAL/EXTREMETIES Musculoskeletal/Extremeties: MAEW, FROM, Tender - Patient with tenderness to right wrist over distal radius with 1+ edema and ecchymosis, patient with left ankle tenderness over lateral malleolar area with 2+ edema. Patient able to bear weight normally, no deformity, Edema, Eccymosis - Right wrist - NEURO Level of Consciousness: Awake, Alert, Appropriate Motor/Sensory: No Motor Deficit - DERM Integumentary: Warm, Dry Notes: Abrasion to proximal right forearm and left hand Course - Re-evaluation Re-evalutation: 04/29/19 12:06 Patient advised of radiology report findings. Patient also made aware of concern about possible small avulsion fracture noted on distal end of left fibula. Patient advised that treatment would still be immobilization with a stirrup splint at this time. Patient was offered crutches but declines. Good return precautions discussed. The patient presents with head injury without signs of PALLIATIVE SENIOR NP bleed, stroke, or other serious etiology. The patient is neurologically intact. Given the extremely low risk of these diagnoses further testing and evaluation for these possibilities does not appear to be indicated at this time. The patient has been instructed to return if the symptoms worsen or change in any way. - Vital Signs Vital signs: Temp Pulse Resp BP Pulse Ox 98.0 F 77 18 134/72 H 94 04/29/19 10:27 04/29/19 10:27 04/29/19 10:27 04/29/19 10:27 04/29/19 10:27 - Diagnostic Test Radiology reviewed: Image reviewed, Reports reviewed Procedures - Immobilization Left Ankle Pre-Proc Neuro Vasc Exam: Normal Immobilizer type: Ankle stirrup Performed by: PCT Post-Proc Neuro Vasc Exam: Normal Alignment checked and good: Yes Right Wrist Pre-Proc Neuro Vasc Exam: Normal Immobilizer type: Cock-up Performed by: PCT Post-Proc Neuro Vasc Exam: Normal Alignment checked and good: Yes Discharge - Discharge Clinical Impression: Skin abrasion Head injury Qualifiers: Encounter type: initial encounter Qualified Code(s): S09.90XA - Unspecified i njury of head, initial encounter Left ankle sprain Qualifiers: Encounter type: initial encounter Involved ligament of ankle: unspecified ligament Qualified Code(s): S93.402A - Sprain of unspecified ligament of left ankle, initial encounter Right wrist sprain Qualifiers: Encounter type: initial encounter Qualified Code(s): S63.501A - Unspecified sprain of right wrist, initial encounter Condition: Stable Disposition: HOME, SELF-CARE Instructions: Acetaminophen, Ankle Stirrup Splint ([facility]), Head Injury Precautions ([facility]), Ice & Elevation ([facility]), Splint Precautions ([facility]), Sprained Ankle ([facility]) Additional Instructions: Return immediately for any new or worsening symptoms Followup with your primary care provider, call tomorrow to make a followup appointment Follow-up with orthopedics for any persistent pain or problems Prescriptions: Hydrocodone/Acetaminophen [[place] 5-325 mg Tablet] 1 tab PO Q6 PRN #10 tablet PRN Reason: Forms: Return to Work Referrals: [facility] [Provider Group] - Follow up as needed
--- NOTE | 2019-04-29 11:56 | RADIOLOGY REPORT (SQ) ---
EXAM DESCRIPTION: ANKLE LEFT COMPLETE COMPLETED DATE/TIME: 04/29/2019 11:40 am REASON FOR STUDY: fall COMPARISON: None. NUMBER OF VIEWS: Three views. TECHNIQUE: AP, lateral, and oblique radiographic images acquired of the left ankle. LIMITATIONS: None. FINDINGS: MINERALIZATION: Normal. BONES: No acute fracture or dislocation. No worrisome bone lesions. JOINTS: No effusions. SOFT TISSUES: No soft tissue swelling. No foreign body. OTHER: No other significant finding. IMPRESSION: NEGATIVE STUDY OF THE LEFT ANKLE. NO RADIOGRAPHIC EVIDENCE OF ACUTE INJURY. TECHNICAL DOCUMENTATION: JOB ID: [id number] [employer]- All Rights Reserved Reading location - IP/workstation name: [email or web address]
--- NOTE | 2019-04-29 11:57 | RADIOLOGY REPORT (SQ) ---
EXAM DESCRIPTION: WRIST RIGHT 3 VIEWS COMPLETED DATE/TIME: 04/29/2019 11:40 am REASON FOR STUDY: fall COMPARISON: None. NUMBER OF VIEWS: Three views. TECHNIQUE: AP, lateral, and oblique radiographic images acquired of the right wrist. LIMITATIONS: None. FINDINGS: MINERALIZATION: Normal. BONES: No acute fracture or dislocation. No worrisome bone lesions. Normal alignment. SOFT TISSUES: No soft tissue swelling. No foreign body. OTHER: No other significant finding. IMPRESSION: NEGATIVE STUDY OF THE RIGHT WRIST. NO RADIOGRAPHIC EVIDENCE OF ACUTE INJURY. TECHNICAL DOCUMENTATION: JOB ID: [id number] [employer]- All Rights Reserved Reading location - IP/workstation name: [email or web address]
[2019-04-29 12:40] VITALS: BP 132/77
== END 2019-04-29 12:43 | disposition home or self-care (01) ==
LOC: ER 10:06
PROC: 2W3RX1Z Immobilization of Left Lower Leg using Splint (ICD-10-PCS; principal; 2019-04-29)
DX: S09.90XA Unspecified injury of head, initial encounter (principal); S93.402A Sprain of unspecified ligament of left ankle, initial encounter; S63.501A Unspecified sprain of right wrist, initial encounter; M25.531 Pain in right wrist; M25.572 Pain in left ankle and joints of left foot; R51 Headache; W19.XXXA Unspecified fall, initial encounter
CPT/HCPCS: 99283; 90471; 73610; 73110; 90715; 29515; L1902; L3908

== ENCOUNTER → 2019-09-01 | Outpatient (CLI) | payer BC ==
--- NOTE | 2019-09-01 11:43 | RADIOLOGY REPORT (SQ) ---
EXAM DESCRIPTION: CHEST 2 VIEWS COMPLETED DATE/TIME: 09/01/2019 11:31 am REASON FOR STUDY: SOB R06.02 COMPARISON: 11/11/2012 EXAM PARAMETERS: NUMBER OF VIEWS: two views TECHNIQUE: Digital Frontal and Lateral radiographic views of the chest acquired. RADIATION DOSE: NA LIMITATIONS: none FINDINGS: LUNGS AND PLEURA: No opacities, masses or pneumothorax. No pleural effusion. MEDIASTINUM AND HILAR STRUCTURES: No masses or contour abnormalities. HEART AND VASCULAR STRUCTURES: Heart normal size. No evidence for failure. BONES: No acute findings. HARDWARE: None in the chest. OTHER: No other significant finding. IMPRESSION: NO ACUTE RADIOGRAPHIC FINDING IN THE CHEST. TECHNICAL DOCUMENTATION: JOB ID: [id number] [employer]- All Rights Reserved Reading location - IP/workstation name: [email or web address]
== END ==
LOC: RAD 11:19
PROVIDERS: ATTEND Nurse Practitioner Family
DX: R06.02 Shortness of breath (principal)
CPT/HCPCS: 71046